=== PATIENT | female | born 1955 | race Asian ===

== ENCOUNTER → 2017-02-14 | Day surgery (SDC) | payer MEDICAID ==
[2017-02-10 10:26] LABS: BASOPHIL % 0.6 % (0-2); PLATELET COUNT 207 x10^3mcL (130-400); RED CELL DISTRIBUTION WIDTH 17.8 % (11.5-14.5)
[2017-02-10 10:37] LABS: ALBUMIN 3.5 g/dL (3.4-5.0); ALKALINE PHOSPHATASE 54 U/L (46-116); ALT/SGPT 26 U/L (14-59); AST/SGOT 17 U/L (15-37); BILIRUBIN TOTAL 0.34 mg/dL (0.20-1.00); CALCIUM 8.9 mg/dL (8.5-10.1); CARBON DIOXIDE 30.4 mmol/L (21-32); CHLORIDE SERUM 102 mmol/L (98-107); CREATININE SERUM 0.7 mg/dL (0.6-1.0); GFR1 > 60 mL/min; GLUCOSE SERUM 90 mg/dL (74-106); POTASSIUM SERUM 4.1 mmol/L (3.5-5.1); SODIUM SERUM 137 mmol/L (136-145); TOTAL PROTEIN, SERUM 7.2 g/dL (6.4-8.2)
[~2017-02-14] VITALS: Ht 154.9 cm; Wt 59.0 kg
[2017-02-14 08:03] VITALS: BP 142/91
[2017-02-14 16:33] VITALS: BP 110/65
== END | disposition home or self-care (01) ==
LOC: DS 02-13 08:08 → MA 02-13 10:00 → DS 02-13 10:00 → OR 02-13 12:00 → DS 07:54
PROVIDERS: Surgery
PROC: 07B50ZZ Excision of Right Axillary Lymphatic, Open Approach (ICD-10-PCS; 2017-02-14)
PROC: 0HBT0ZZ Excision of Right Breast, Open Approach (ICD-10-PCS; principal; 2017-02-14 12:00)
DX: C50.911 Malignant neoplasm of unspecified site of right female breast (principal); I10 Essential (primary) hypertension
CPT/HCPCS: 88344; J0690; J1170; J2001; J2405; J3010; J3490; Q9968